=== PATIENT | female | born 1930 | race Caucasian/White ===

== ENCOUNTER 2017-11-15 21:57 | Inpatient (IN) | payer OTHER ==
[~2017-11-15] VITALS: Ht 175.3 cm; Wt 132.9 kg
[~2017-11-15 21:57] MED LIST: ALLOPURINOL300 MG PO; ASCORBIC ACID500 M3 PO; ASPIRIN EC325 MG PO; ATORVASTATIN CA10 MG PO; CELECOXIB200 MG PO; CENTRUM SILVER1 EAC3 PO; CIPROFLOXACIN250 MG PO; CITRACAL PLUS1 EAC1 PO; CITRACAL-VIT D1 EACH PO; DILAUDID2 MG PO; FLECAINIDE ACET50 MG PO; FOLIC ACID1 MG PO; HYDROCHLOROTHIA25 MG PO; HYDROCODON-ACE1 EAC7 PO; IRON325 MG PO; LIDOCAINE700 MG TD; LOPRESSOR50 MG PO; LUMIGAN 0.50 DROP/22 BOTH EYES; MACROBID100 MG PO; MACRODANTIN50 M1 PO; MEDROL DOSEPAK4 MG PO; MIRALAX17 GM PO; MIRALAX255 GM PO; NEXIUM40 MG PO; PLAVIX75 MG PO; PROAIR HFA8.5 GM IH; PULMICORT FLE180 MCG IH; SENNA-TIME S T1 EACH PO; SINGULAIR10 MG PO; THEO-24300 MG PO; THEO-24400 MG PO; TYLENOL EXTRA500 MG PO; VALIUM5 MG PO; VENTOLIN HFA18 GM IH; XALATAN 0.50 DROP/2. BOTH EYES
[2017-11-16 06:47] VITALS: BP 156/71
[2017-11-16 10:30] LABS: HEMATOCRIT 34.5 % (36.0-46.0); HEMOGLOBIN 11.8 G/DL (11.9-15.5); MCH 31.4 PG (29.0-34.0); MCHC 34.2 G/DL (30.0-36.0); MCV 91.8 FL (83-99); PLATELET COUNT 167 K/uL (156-360); RBC DIS.WIDTH-CV 13.7 % (11.8-14.6); RBC DIS.WIDTH-SD 46.1 % (39-53); RED BLOOD COUNT 3.76 M/uL (3.80-5.20); WHITE BLOOD COUNT 8.9 K/uL (4.1-10.2)
[2017-11-16 11:17] VITALS: BP 134/73
[2017-11-16 15:40] VITALS: BP 170/72
[2017-11-16 20:10] VITALS: BP 151/65
[2017-11-17 04:48] VITALS: BP 147/60
[2017-11-17 07:33] LABS: HEMATOCRIT 29.9 % (36.0-46.0); HEMOGLOBIN 10.2 G/DL (11.9-15.5); MCV 91.4 FL (83-99)
[2017-11-17 07:54] LABS: CHLORIDE 101 MEQ/L (99-109); CREATININE 0.8 MG/DL (0.6-1.3); GFR ESTIMATE (CALCULATED) > 59 mL/min/; GLUCOSE 132 mg/dL (70-99); POTASSIUM 4.1 MEQ/L (3.7-5.4); SODIUM 137 MEQ/L (136-147); UREA NITROGEN (BUN) 16 mg/dL (9-23)
[2017-11-17 08:28] VITALS: BP 121/82
[2017-11-17 11:35] VITALS: BP 138/82
[2017-11-17 15:48] VITALS: BP 160/68
[2017-11-17 20:05] VITALS: BP 151/65
[2017-11-17 23:56] VITALS: BP 144/72
[2017-11-18 03:56] VITALS: BP 150/70
[2017-11-18 05:55] LABS: HEMATOCRIT 30.7 % (36.0-46.0); HEMOGLOBIN 10.7 G/DL (11.9-15.5); MCV 90.3 FL (83-99)
[2017-11-18 07:43] VITALS: BP 142/63
[2017-11-18 08:55] LABS: BASOPHIL (%) 0.3 % (0-1); EOSINOPHIL (%) 0.1 % (0-5); IMMATURE GRANULOCYTE (%) 0.7 % (0.0-0.7); LYMPHOCYTE (%) 8.4 % (15-42); LYMPHOCYTE COUNT 1.2 K/uL (1.0-2.8); MCH 31.2 PG (29.0-34.0); MCHC 34.3 G/DL (30.0-36.0); MONOCYTE (%) 9.8 % (3-12); MONOCYTE COUNT 1.4 K/uL (0-0.8); NEUTROPHIL (%) 80.7 % (45-76); NEUTROPHIL COUNT 11.2 K/uL (1.8-6.4); PLATELET COUNT 168 K/uL (156-360); RBC DIS.WIDTH-CV 13.5 % (11.8-14.6); RBC DIS.WIDTH-SD 45.1 % (39-53); WHITE BLOOD COUNT 13.9 K/uL (4.1-10.2)
[2017-11-18 10:16] LABS: APPEARANCE CLEAR ((CLEAR)); BILIRUBIN NEGATIVE; BLOOD SMALL; COLOR YELLOW ((YELLOW)); GLUCOSE (STRIP) NEGATIVE; KETONES 5; LEUKOCYTES NEGATIVE; NITRITE NEGATIVE; PROTEIN (STRIP) NEGATIVE; SPECIFIC GRAVITY 1.008 (1.000-1.030); UROBILINOGEN 0.2 MG/DL (0.2-1.0)
[2017-11-18 10:22] LABS: BACTERIA RARE /HPF; EPITHELIAL CELLS RARE /HPF; MUCUS TRACE /LPF; RED BLOOD CELLS 0-5 /HPF (0-5); UCUL ADDED? NO; WHITE BLOOD CELLS 0-5 /HPF (0-5)
[2017-11-18 12:37] VITALS: BP 142/62
[2017-11-18 15:35] VITALS: BP 146/87
[2017-11-18 15:37] VITALS: BP 167/88
[2017-11-18 23:20] VITALS: BP 141/74
[2017-11-19 08:06] VITALS: BP 146/69
[2017-11-19] MEDS ORDERED: OXYCODONE HCL5 MG PO (08:34)
[2017-11-19] MEDS ORDERED: LOVENOX40 MG/0.4 SC (08:34)
== END 2017-11-19 14:41 | DRG 470 ==
LOC: ENRESERV 21:57 → 3WEST 11-16 05:26 → 2SOUTH 11-16 05:26 → 3WEST 11-16 10:58 → 2SOUTH 11-16 12:46 → 3WEST 11-18 07:08 → 3EAST 11-18 14:50
PROVIDERS: Nurse Practitioner Family; Orthopaedic Surgery
PROC: 0SRD0J9 Replacement of Left Knee Joint with Synthetic Substitute, Cemented, Open Approach (ICD-10-PCS; principal; 2017-11-16)
DX: M17.0 Bilateral primary osteoarthritis of knee (principal); M81.0 Age-related osteoporosis without current pathological fracture; Z87.891 Personal history of nicotine dependence; M10.9 Gout, unspecified; J45.909 Unspecified asthma, uncomplicated; Z96.651 Presence of right artificial knee joint; E78.5 Hyperlipidemia, unspecified; H40.9 Unspecified glaucoma; E66.01 Morbid (severe) obesity due to excess calories; Z68.41 Body mass index [BMI] 40.0-44.9, adult
CPT/HCPCS: 71045; 73522; 73560; 80048; 80198; 81003; 85014; 85018; 85025; 85027; 94640; 94760; 94799; C1713; J0131; J1100; J1170; J1650; J2250; J2405; J2795; J3010; J3370; J7050; S0020